=== PATIENT | female | born 1995 | race Caucasian/White ===

== ENCOUNTER 2016-06-25 08:28 | Emergency (ER) | payer OTHER ==
--- NOTE | 2016-06-25 09:17 | ED ---
Fall HPI - General Chief Complaint: Fall Stated Complaint: Fall Time Seen by Provider: 06/25/16 08:45 Source: patient, RN notes reviewed Mode of arrival: ambulatory - History of Present Illness Initial Comments: Patient is a 20-year-old female presents to the emergency room for evaluation of fall injury. Patient states that she was about to walk down the steps and slipped and fell landing on her mid back. Patient states that the wind was knocked out of her when she landed. Patient states she is not sure if she hit the back of her head when she fell. Patient states she then blacked out and woke up on the bottom of the steps. Patient's mother is present with patient. Patient's mother states that she heard a loud "bang" on the steps. Patient's mother states that she saw patient lying on the steps and she went to sit up and then appeared like she was going to pass out and then fell forward rolling down 7 steps. Patient's mother states that it took patient about a minute to regain consciousness. Patient states she's having a headache. Patient also states she's having neck pain. Patient states pain is worse when she moves her neck. Patient denies numbness or tingling in her fingers and toes. Patient's mother states that she gave patient aspirin immediately after the incident. Patient states that she's having pain over her nose where she has an abrasion. Patient states that she has a bruise over her forehead and 2 small abrasions on her right hand. Patient states she's having slight posterior left ankle pain as well. Patient states she still having pain in her mid thoracic spine where it hit the steps during the first fall. Patient denies urinary or fecal incontinence. Patient denies anesthesia. Patient states she is still able to walk. Patient denies nausea or vomiting. Patient denies current dizziness or changes in vision. Patient denies wearing years. - Related Data Home Medications Medication Instructions Recorded Confirmed Ciprofloxacin HCl [Cipro] 500 mg PO Q12HR 06/25/16 06/25/16 Allergies Allergy/AdvReac Type Severity Reaction Status Date / Time No Known Allergies Allergy Verified 06/25/16 08:53 Review of Systems ROS Statement: Those systems with pertinent positive or pertinent negative responses have been documented in the HPI. ROS Other: All systems not noted in ROS Statement are negative. Past Medical History Past Medical History: No Reported History History of Any Multi-Drug Resistant Organisms: None Reported Past Surgical History: No Surgical Hx Reported Past Psychological History: No Psychological Hx Reported Smoking Status: Never smoker Past Alcohol Use History: Occasional Past Drug Use History: None Reported General Exam - General Exam Comments Initial Comments: Sitting in exam room, no acute distress. Limitations: no limitations General appearance: alert, in no apparent distress Head exam: Present: normocephalic, normal inspection, other (Small hematoma and abrasion over the right side of forehead) Eye exam: Present: normal appearance, PERRL, EOMI Pupils: Present: normal accommodation ENT exam: Present: normal oropharynx, mucous membranes moist, TM's normal bilaterally, normal external ear exam, other (Abrasion over nasal bridge in pain on palpating over nasal bridge) Expanded Mouth exam: Present: normal external inspection Teeth exam: Present: normal inspection Throat exam: normal inspection Neck exam: Present: normal inspection, tenderness (Tenderness on palpating over her cervical spine) Respiratory exam: Present: normal lung sounds bilaterally. Absent: respiratory distress Cardiovascular Exam: Present: regular rate, normal rhythm, normal heart sounds Right Hand Wrist exam: Present: full ROM, abrasion (Superficial abrasion over right MCP joint and PIP joint.). Absent: tenderness Neuro motor exam: Present: wrist extension intact, thumb opposition intact, thumb IP flexion intact, thumb adduction intact, fingers 2-5 abduction intact Vascular: Present: normal capillary refill (Capillary refill less than 2 seconds ), radial pulse (2+), ulnar pulse (2+) Left Ankle exam: Present: normal inspection, full ROM, tenderness (Tenderness on palpating over posterior portion of lateral malleolus). Absent: swelling Foot/Toe exam: Present: normal inspection, full ROM. Absent: tenderness Neurovascular tendon exam: Present: no vascular compromise. Absent: pulse deficit (2+ dorsal pedal and posterior tibial pulses), abnormal cap refill ( Capillary refill less than 2 seconds) Gait: observed and normal Back exam: Present: normal inspection Neurological exam: Present: alert, oriented X3, CN II-XII intact, normal gait Psychiatric exam: Present: normal affect, normal mood Skin exam: Present: warm, dry, normal color. Absent: rash Course Vital Signs 06/25/16 08:29 Temperature 98.0 F Pulse Rate 75 Respiratory 16 Rate Blood Pressure 127/82 O2 Sat by Pulse 100 Oximetry Medical Decision Making - Medical Decision Making Patient is a 20-year-old female presents to the emergency room for evaluation after falling down steps. CT of brain/C-spine and facial CT shows no acute findings. X-rays show no acute findings. Advised patient to continue taking Tylenol and Motrin for pain and to follow-up with her primary care provider. Patient states she understands everything that was discussed with her. Return parameters discussed. Case discussed with Dr. Beck. - Radiology Data Radiology results: report reviewed, image reviewed Disposition Clinical Impression: Fall, Left ankle sprain, Neck strain, Contusion of lower back, Abrasion Disposition: HOME SELF-CARE Condition: Good Instructions: Abrasion (ED), Hematoma (ED), Head Injury (ED), Ankle Sprain (ED) Additional Instructions: Take Tylenol or Motrin as needed for discomfort. Please follow-up with primary care provider in 24-48 hours for reevaluation. If any new symptom arises or symptoms worsen, return to ER as soon as possible. Referrals: Rox Tariq MD [Primary Care Provider] - 1-2 days Time of Disposition: 10:40
--- NOTE | 2016-06-25 09:48 | XR ---
EXAMINATION TYPE: XR ankle complete LT DATE OF EXAM: 06/25/2016 9:41 AM COMPARISON: NONE HISTORY: Pain and swelling FINDINGS: Three views of the ankle demonstrate the ankle mortise to be intact and symmetric. The joint spaces are preserved. The osseous structures are intact. IMPRESSION: 1. No definite acute fracture or dislocation, if symptoms persist follow-up study in 7 to 10 days wou ld be suggested.
--- NOTE | 2016-06-25 09:50 | XR ---
EXAM TYPE: LUMBAR SPINE X RAY SERIES COMPARISON: NONE HISTORY: Pain TECHNIQUE: 4 views are submitted. FINDINGS: Alignment is anatomic. The pedicles are intact. The transverse processes are intact. There is no s pondylolysis or spondylolisthesis. Spina bifida occulta S1. IMPRESSION: 1. No acute process.
--- NOTE | 2016-06-25 10:05 | CT ---
EXAMINATION TYPE: CT brain cspine wo con, CT facial bones wo con DATE OF EXAM: 06/25/2016 9:40 AM COMPARISON: NONE HISTORY: Fall down 2 stairs, syncopal episode, then fell down rest of flight of stairs (accession [id number]), Fall down stairs, syncopal episode, then fell down rest of flight of stairs causing headache, neck pain, and facial pain (accession [id number]) CT DLP: 1530 (accession [id number]), 823 (accession [id number]) mGycm. Automated Exposure Control for Dos e Reduction was Utilized. TECHNIQUE: CT scan of the head, facial bones, and cervical spine are all performed without contrast. FINDINGS: There is no acute intracranial hemorrhage, mass effect, or midline shift identified. The ventricles and sulci are within normal limits in size. The calvarium is intact. There is tiny acute scalp hematoma right frontal region seen best on facial axial image 76. CT scan of facial bones shows nasal bridge and bones to appear intact. The zygomatic arches are intac t bilaterally. The orbital floors and thompson are intact. The globes are intact bilaterally. The pteryg oid plates are intact. The mandible is intact. Temporomandibular joints are maintained. There is mini mal mucosal thickening inferiorly in bilateral maxillary sinuses. Nondeformed frontal sinuses are not ed otherwise paranasal sinuses are grossly clear. Cervical spine is visualized in its entirety from C1 through upper thoracic levels and demonstrates s traightened alignment without evidence of acute fracture or dislocation. Prevertebral soft tissue ap pears within normal limits. The C1-C2 articulation is within normal limits on the coronal images. Ve rtebral body heights and disc space heights are maintained. No large posterior disc herniations are s een on sagittal images. Review of axial images shows no large disc herniations or neural foraminal narrowing at any cervical level. Thyroid gland is felt within normal limits. Lung apices are clear. IMPRESSION: 1. There is no acute fracture or dislocation evident in the cervical spine. 2. No acute intracranial hemorrhage or midline shift is seen. Tiny anterior right frontal scalp acute hematoma noted. 3. No acute facial bone fracture or dislocation is seen.
[2016-06-25 11:03] VITALS: BP 109/62; PULSE 72; RESP 18; TEMP 98.2
== END 2016-06-25 11:03 | disposition home or self-care (01) ==
LOC: EC 08:28
DX: S93.402A Sprain of unspecified ligament of left ankle, initial encounter (principal); S16.1XXA Strain of muscle, fascia and tendon at neck level, initial encounter; S30.0XXA Contusion of lower back and pelvis, initial encounter; S00.83XA Contusion of other part of head, initial encounter; S60.511A Abrasion of right hand, initial encounter; S00.31XA Abrasion of nose, initial encounter; W10.9XXA Fall (on) (from) unspecified stairs and steps, initial encounter; Y92.009 Unspecified place in unspecified non-institutional (private) residence as the place of occurrence of the external cause
CPT/HCPCS: 70450; 70486; 72110; 72125; 99284

== ENCOUNTER 2019-09-21 06:00 | Inpatient (IN) | payer BC, OTHER ==
[2019-09-21] MEDS ORDERED: LIDOCAINE 0.5% (PF) 5 MG/ML (50 ML SDV) SQ PRN (06:36)
[2019-09-21] MEDS ORDERED: METHYLERGONOVINE 0.2 MG/ML 1 ML AMP IM PRN (06:36)
[2019-09-21] MEDS ORDERED: OXYTOCIN 10 UNIT/ML 1 ML VIAL IM PRN (06:36)
[2019-09-21] MEDS ORDERED: CARBOPROST TROMETHAMINE 250 MCG/ML 1 ML AMP IM PRN (06:36)
[2019-09-21] MEDS ORDERED: TERBUTALINE 1 MG/ML VIAL SQ PRN (06:36)
[2019-09-21] MEDS: LACTATED RINGERS 1,000 ML IV SCH ×3 (06:44→16:14)
[2019-09-21 06:46] LABS: Basophils % (A) 0 %; Eosinophils % (A) 1 %; HCT 34.2 % (34.0-46.0); HGB 11.2 gm/dL (11.4-16.0); Lymphocytes # (A) 2.5 k/uL (1.0-4.8); Lymphocytes % (A) 32 %; MCH 29.5 pg (25.0-35.0); MCHC 32.9 g/dL (31.0-37.0); MCV 89.5 fL (80.0-100.0); Monocytes # (A) 0.4 k/uL (0-1.0); Monocytes % (A) 5 %; Neutrophils # (A) 4.8 k/uL (1.3-7.7); Neutrophils % (A) 61 %; Platelet Count 142 k/uL (150-450); RBC 3.82 m/uL (3.80-5.40)
[2019-09-21] MEDS: OXYTOCIN 30 UNITS/500 ML NS 30 UNIT in SALINE 1 500ML.BAG IV SCH (06:50)
--- NOTE | 2019-09-21 07:48 | P.HPOB ---
History of Present Illness H&P Date: 09/21/19 Chief Complaint: Here for induction of labor This is a 24-year-old white female 1 para 0 EDC 09/23/2019 39-5/7 weeks' gestation. Patient presents for induction with favorable cervix. Fetus active throughout the . She is having irregular mild uterine contractions spontaneously. She denies vaginal bleeding or fluid leakage. Past medical history is essentially unremarkable. Past surgical history is significant only for extraction of wisdom teeth. Current medications vitamins. ALLERGIES none known. Family history is unremarkable. Social history patient is single, boyfriend is involved. She denies alcohol, tobacco, or any drug use. history blood type is O+, rubella status immune. VDRL testing, urine culture, hepatitis B surface antigen, HIV testing, gonorrhea and chlamydia cultures, group B strep cultures all negative. One-hour Glucola 98. On exam this is a pleasant white female who is 5 foot 6 inches, 148 pounds, bl ood pressure 137/91 on admission. The general physical exam is within normal limits. The chest is clear in all agust[place]. Cervix is 3 cm dilated, 80% effaced, -2 station, vertex presentation, soft and anterior. Artificial amniorrhexis reveals clear fluid. heart rate is in the 140s with frequent accelerations consistent with reactive NST. Impression: 39-5/7 weeks intrauterine , here for induction of labor. All signs reassuring. Plan: Close maternal and surveillance. Oxytocin per hospital protocol. Analgesic options reviewed. Anticipate normal spontaneous vaginal delivery. Review of Systems Constitutional: Reports as per HPI Past Medical History Past Medical History: No Reported History History of Any Multi-Drug Resistant Organisms: None Reported Past Surgical History: No Surgical Hx Reported Past Psychological History: No Psychological Hx Reported Smoking Status: Never smoker Past Alcohol Use History: Occasional Past Drug Use History: None Reported - Past Family History Father Additional Family Medical History / Comment(s): Pt states no one in family has any issues. Medications and Allergies Allergies Allergy/AdvReac Type Severity Reaction Status Date / Time No Known Allergies Allergy Verified 06/25/16 08:53 Exam Vital Signs Temp Pulse Resp BP 09/21/19 06:24 97.3 F L 97 18 137/91 Intake and Output 09/20/19 09/21/19 09/21/19 22:59 06:59 14:59 Other: Weight 67.261 kg See dictation under HPI please Results Result Diagrams: 09/21/19 06:36 Abnormal Lab Results - Last 24 Hours (Table) 09/21/19 Range/Units 06:36 Hgb 11.2 L (11.4-16.0) gm/dL Plt Count 142 L (150-450) k/uL Assessment and Plan Assessment: 39-5/7 weeks intrauterine , here for induction of labor. All signs reassuring. Plan: Oxytocin per hospital protocol. Close maternal and surveillance. Anticipating normal spontaneous vaginal delivery. Time with Patient: Less than 30
[2019-09-21] MEDS ORDERED: fentaNYL (PF) 50 MCG/ML 5 ML AMP ONE (11:39)
[2019-09-21] MEDS ORDERED: SODIUM CHLORIDE 0.9% 100 ML BAG ONE (11:39)
[2019-09-21] MEDS ORDERED: ROPIVACAINE 5MG/ML 20ML VIAL ONE (11:39)
[2019-09-21] MEDS ORDERED: ACETAMINOPHEN TAB 325 MG TAB PO PRN (20:14)
[2019-09-21] MEDS ORDERED: diphenhydrAMINE 25 MG CAP PO PRN (20:14)
[2019-09-21] MEDS ORDERED: BENZOCAINE/MENTHOL SPRAY 1 GM/SPRAY AEROSOL TOPICAL PRN (20:14)
[2019-09-21] MEDS ORDERED: WITCH HAZEL 1 EACH MED..PAD TOPICAL PRN (20:14)
[2019-09-21] MEDS ORDERED: ZOLPIDEM 5 MG TAB PO PRN (20:14)
[2019-09-21] MEDS ORDERED: LANOLIN CREAM 5 GM TUBE TOPICAL PRN (20:14)
[2019-09-21] MEDS ORDERED: SIMETHICONE 80 MG CHEWABLE PO PRN (20:14)
[2019-09-21] MEDS ORDERED: diphenhydrAMINE 50 MG CAP PO PRN (20:14)
[2019-09-21] MEDS ORDERED: HYDROCORTISONE 2.5% RECTAL CREAM 30 GM TUBE RECTAL PRN (20:14)
[2019-09-21] MEDS ORDERED: diphenhydrAMINE 50 MG/ML 1 ML VIAL IVP PRN ×2 (20:14)
--- NOTE | 2019-09-21 20:14 | P.PROBDLV ---
Vaginal Delivery Note - . Vaginal Delivery Note: This is a 24-year-old white female 1 para 0 EDC 09/23/2019 at 39-5/7 weeks' gestation. Patient presented for induction with favorable cervix. Group B strep cultures negative. Blood type O positive. Rubella status immune. Please see dictated history and physical for details. Oxytocin was started and titrated per hospital protocol. Artificial amniorrhexis revealed clear fluid. Epidural was placed per the patient's request. She progressed well through the first stage of labor was judged to be completely dilated at 1910 hrs. She began the second stage of labor at that time. With excellent maternal expulsive efforts ultimately the perineal body was prepped and draped in usual sterile fashion. 's head delivered in the occiput anterior position at 1953 hours. There was a nuchal cord 2 that was reduced. The right or anterior shoulder was gently delivered from underneath the pubic symphysis at which time the oropharynx, nasopharynx, and external nares were bulb suctioned on the perineal body. Patient was officially delivered of a liveborn female at 1953 hours. Umbilical cord was doubly clamped and ligated. was handed to waiting nurses for evaluation. weighed 7 lbs. 4 oz. or 06/13/2004 grams. Placenta delivered spontaneously, it was inspected and noted to be intact with trivascular cord at 1955 hours. The uterus is then massaged. It is firm and in the midline, and small. Bleeding was somewhat brisk, Methergine was given IM 1 with immediate response. Careful inspection of the cervix, vagina, perineum, periurethral, and perirectal areas revealed no lacerations and no defects. Total estimated blood loss 400 mL's. All sponge needle and enhancement counts are correct at the end of the procedure. Patient and her family are allowed to begin the bonding experience in the LDR.
[2019-09-21] MEDS ORDERED: OXYTOCIN 20 UNITS/1000 ML NS 1,000 ML IV SCH (20:15)
[2019-09-21] MEDS: IBUPROFEN 600 MG TAB PO PRN (21:41)
[2019-09-22 06:00] LABS: Basophils % (A) 0 %; Eosinophils % (A) 0 %; HCT 25.7 % (34.0-46.0); Lymphocytes # (A) 1.5 k/uL (1.0-4.8); Lymphocytes % (A) 11 %; MCHC 33.8 g/dL (31.0-37.0); MCV 91.5 fL (80.0-100.0); Mean Platelet Volume 11.5; Monocytes # (A) 0.7 k/uL (0-1.0); Monocytes % (A) 5 %; Neutrophils # (A) 11.6 k/uL (1.3-7.7); Neutrophils % (A) 83 %; Platelet Count 125 k/uL (150-450); RDW 13.1 % (11.5-15.5); WBC 13.9 k/uL (3.8-10.6)
[2019-09-22 06:18] LABS: HGB 8.7 gm/dL (11.4-16.0)
--- NOTE | 2019-09-22 07:35 | P.DS ---
Providers Date of admission: 09/21/19 06:08 Expected date of discharge: 09/22/19 Attending physician: Kait Ledbetter Primary care physician: Stated None Hospital Course: This is a 24-year-old white female 1 para 0 EDC 09/23/2019 39-5/7 weeks' gestation. Patient presented for induction with favorable cervix. unremarkable, rubella status immune, blood type O positive, group B strep cultures negative. Please see dictated H&P for details. Oxytocin was started and titrated per hospital protocol. Epidural was placed per patient's request. She progressed well through the first stage of labor and became completely dilated at 1910 hours. She began the second stage of labor at that time. heart tones were reassuring throughout the entire first and second stages of labor. Patient went on to deliver vaginally a liveborn female infant with scores of 5, 8 and 9 at 1, 5 and 10 minutes respectively. There was a nuchal cord 2 that was reduced. No perineal lacerations were encountered. Estimated blood loss 400 mL's. Please see dictated delivery note for details. 's weight was 7 lbs. 4 oz. or 06/13/2004 grams. This morning the patient and her baby are both doing very well. The patient is voiding, ambulating, passing flatus without difficulty. Vital signs are stable and she is afebrile. Fundus is firm and in the midline, symmetric and 18 week size. Extremities are negative for edema. Breast-feeding is going well. Patient is judged to be in very good condition for discharge home. She will follow-up with me in the office in 6 weeks. I have reminded her no intercourse, tampons or douching. She will use [id number] Advil or Aleve, or Motrin as needed for pain. I've asked her to call me with any fevers shakes or chills, foul smelling or copious lochia, with the passage of large blood clots, with any pain not alleviated by [id number] products, or indeed with any difficulties or concerns. A prescription for a double electric breast pump has been provided. Assessment: Doing well day #1 Patient Condition at Discharge: Good Plan - Discharge Summary Discharge Rx Participant: No Follow up Appointment(s)/Referral(s): Kait Ledbetter MD [STAFF PHYSICIAN] - 6 Weeks Discharge Disposition: HOME SELF-CARE
[2019-09-22] MEDS ORDERED: SENNOSIDES-DOCUSATE SODIUM 1 EACH TAB PO SCH (08:00)
[2019-09-22] MEDS: IBUPROFEN 600 MG TAB PO PRN ×2 (08:31→17:23)
[2019-09-22 08:56] VITALS: TEMP 98.3
[2019-09-22] MEDS: LACTATED RINGERS 1,000 ML IV SCH (13:23)
[2019-09-22] MEDS: OXYTOCIN 30 UNITS/500 ML NS 30 UNIT in SALINE 1 500ML.BAG IV SCH (13:24)
[2019-09-22 16:39] VITALS: BP 111/65; PULSE 97; RESP 16
== END 2019-09-22 20:20 | disposition home or self-care (01) | DRG 807 ==
LOC: 4FBP 06:08
PROVIDERS: ADMIT Obstetrics & Gynecology; ATTEND Obstetrics & Gynecology
PROC: 10E0XZZ Delivery of Products of Conception, External Approach (ICD-10-PCS; principal; 2019-09-21)
PROC: 10907ZC Drainage of Amniotic Fluid, Therapeutic from Products of Conception, Via Natural or Artificial Opening (ICD-10-PCS; 2019-09-21)
PROC: 3E033VJ Introduction of Other Hormone into Peripheral Vein, Percutaneous Approach (ICD-10-PCS; 2019-09-21)
PROC: 3E0R3BZ Introduction of Anesthetic Agent into Spinal Canal, Percutaneous Approach (ICD-10-PCS; 2019-09-21)
DX: O69.81X0 Labor and delivery complicated by cord around neck, without compression, not applicable or unspecified (principal); Z37.0 Single live birth; Z87.19 Personal history of other diseases of the digestive system; Z3A.39 39 weeks gestation of pregnancy; Z98.890 Other specified postprocedural states
CPT/HCPCS: 85025; 86850; 86900; 86901

== ENCOUNTER 2020-11-04 13:55 | Emergency (ER) | payer BC, OTHER ==
[2020-11-04 13:59] VITALS: BP 123/86; PULSE 116; RESP 16; TEMP 98.3
[2020-11-04] MEDS ORDERED: PROPARACAINE 0.5% OPHTH DROPS 15 ML BTL BOTH EYES STA (14:09)
[2020-11-04] MEDS ORDERED: FLUORESCEIN STRIPS 1 MG STRIP BOTH EYES ONE (14:09)
--- NOTE | 2020-11-04 15:12 | ED ---
Eye Problem HPI - General Chief complaint: Eye Problems Stated complaint: Eye irritation Time Seen by Provider: 11/04/20 14:05 Source: patient, RN notes reviewed Mode of arrival: ambulatory Limitations: no limitations - History of Present Illness Initial comments: Patient is a 25-year-old female that presents to the emergency room complaining of bilateral eye irritation. She notes that she wore contacts for the first time in a long time last night while going out. She notes that she woke up this morning with severe irritation of her eyes were was difficult all numb. She denied any other symptoms or complaints. She did note that her vision was low bit fussy. She denied any pain on extraocular eye movements any foreign-body sensation. - Related Data Previous Rx's Medication Instructions Recorded Erythromycin Ophth Oint [Romycin 1 applic BOTH EYES QID #30 gm 11/04/20 Ophth Oint] Allergies Allergy/AdvReac Type Severity Reaction Status Date / Time No Known Allergies Allergy Verified 11/04/20 13:56 Review of Systems ROS Statement: Those systems with pertinent positive or pertinent negative responses have been documented in the HPI. ROS Other: All systems not noted in ROS Statement are negative. Past Medical History Past Medical History: No Reported History History of Any Multi-Drug Resistant Organisms: None Reported Past Surgical History: No Surgical Hx Reported Past Psychological History: No Psychological Hx Reported Smoking Status: Never smoker Past Alcohol Use History: Occasional Past Drug Use History: None Reported - Past Family History Father Additional Family Medical History / Comment(s): Pt states no one in family has any issues. General Exam Limitations: no limitations General appearance: alert, in no apparent distress Head exam: Present: atraumatic, normocephalic, normal inspection Eye exam: Present: PERRL, EOMI, other (Plan. Exam showed corneal abrasions over the pupil in bilateral eyes.). Absent: normal appearance, scleral icterus, conjunctival injection, periorbital swelling Expanded Eyelids: Normal Inspection: Bilateral Pupils: Regular, Round: Bilateral, Reactive: Bilateral Sclera/Conjunctival: Injection: Bilateral Anterior chamber: Normal Inspection: Bilateral Neck exam: Present: normal inspection Respiratory exam: Present: normal lung sounds bilaterally. Absent: respiratory distress, wheezes, rales, rhonchi, stridor Cardiovascular Exam: Present: regular rate, normal rhythm, normal heart sounds. Absent: systolic murmur, diastolic murmur, rubs, gallop, clicks Extremities exam: Present: normal inspection, full ROM, normal capillary refill. Absent: tenderness, pedal edema, joint swelling, calf tenderness Neurological exam: Present: alert, oriented X3 Psychiatric exam: Present: normal affect, normal mood Skin exam: Present: warm, dry, intact, normal color. Absent: rash Course Vital Signs 11/04/20 13:56 Temperature 98.3 F Pulse Rate 116 H Respiratory 16 Rate Blood Pressure 123/86 O2 Sat by Pulse 100 Oximetry Medical Decision Making - Medical Decision Making 5-year-old female complaining of bilateral eye irritation. Proparacaine drops, fluoroscene strips ordered. Patient states that her eyes felt much better after a couple drops of proparacaine in each eye. Wood lamp exam demonstrated bilateral corneal abrasions. Visual acuity test ordered. Patient was informed that since the abrasions are over the visual field that it can cause some blurriness. Case discussed with Dr. Garvey him a patient can discharge home with follow-up to hunting and fishing guide. Disposition Clinical Impression: Bilateral corneal abrasions Disposition: HOME SELF-CARE Condition: Stable Instructions (If sedation given, give patient instructions): Abrasion (ED) Additional Instructions: Please return to the Emergency Department if symptoms worsen or any other concerns. Follow-up with primary care and hunting and fishing guide the next several days. Use proparacaine drops several times a day for irritation. Erythromycin ointment sent to pharmacy use as directed. Prescriptions: Erythromycin Ophth Oint [Romycin Ophth Oint] 1 applic BOTH EYES QID #30 gm Is patient prescribed a controlled substance at d/c from ED?: No Referrals: Rox Tariq MD [Primary Care Provider] - 1-2 days Time of Disposition: 15:12
== END 2020-11-04 15:19 | disposition home or self-care (01) ==
LOC: EC 13:55
DX: S05.02XA Injury of conjunctiva and corneal abrasion without foreign body, left eye, initial encounter (principal); S05.01XA Injury of conjunctiva and corneal abrasion without foreign body, right eye, initial encounter; Y77.11 Contact lens associated with adverse incidents
CPT/HCPCS: 99283

== ENCOUNTER → 2021-01-08 | Outpatient (CLI) | payer OTHER | END | disposition home or self-care (01) | LOC: LABWHC1 11:43 | PROVIDERS: ATTEND Emergency Medicine | DX: Z20.822 Contact with and (suspected) exposure to COVID-19 (principal) | CPT/HCPCS: 87635 ==

== ENCOUNTER → 2021-01-09 | Outpatient (CLI) | payer OTHER | END | disposition home or self-care (01) | LOC: LABWHC1 14:59 | PROVIDERS: ATTEND Emergency Medicine | DX: Z20.822 Contact with and (suspected) exposure to COVID-19 (principal) | CPT/HCPCS: 87635 ==

== ENCOUNTER → 2021-03-14 | Outpatient (CLI) | payer OTHER | END | disposition home or self-care (01) | LOC: LABWHC1 11:25 | PROVIDERS: ATTEND Emergency Medicine | DX: U07.1 COVID-19 (principal) | CPT/HCPCS: 87635 ==

== ENCOUNTER → 2021-10-09 | Outpatient (CLI) | payer OTHER ==
--- NOTE | 2021-10-09 12:23 | US ---
EXAMINATION TYPE: US abdomen complete DATE OF EXAM: 10/09/2021 COMPARISON: NONE CLINICAL HISTORY: ABD PAIN. EXAM MEASUREMENTS: Liver Length: 13.5 cm Gallbladder Wall: 0.2 cm CBD: 0.2 cm Spleen: 10.7 cm Right Kidney: 10.0 x 3.3 x 4.3 cm Left Kidney: 10.5 x 5.4 x 4.2 cm Pancreas: wnl Liver: wnl Gallbladder: wnl Evidence for sonographic Perez's sign: no CBD: wnl Spleen: wnl Right Kidney: wnl Left Kidney: Superior pole obscured by bowel gas Upper IVC: wnl Abd Aorta: wnl IMPRESSION: 1. Normal abdomen ultrasound
--- NOTE | 2021-10-09 12:24 | US ---
EXAMINATION TYPE: US pelvic complete DATE OF EXAM: 10/09/2021 COMPARISON: NONE CLINICAL HISTORY: PELVIC PAIN. TECHNIQUE: Transvaginal (TV Date of LMP: 09-28-21 EXAM MEASUREMENTS: Uterus: 8.9 x 3.6 x 4.6 cm Endometrial Stripe: 0.3 cm Right Ovary: 3.6 x 1.9 x 2.6 cm Left Ovary: 3.1 x 1.5 x 1.6 cm 1. Uterus: Anteverted wnl 2. Endometrium: wnl 3. Right Ovary: cyst vs dominant follicle measuring 2.6 x 1.7 x 2.3cm 4. Left Ovary: wnl 5. Bilateral Adnexa: wnl 6. Posterior cul-de-sac: mild free fluid IMPRESSION: 1. Right ovarian cyst.
== END | disposition home or self-care (01) ==
LOC: RADUSWWP 08:51
PROVIDERS: ATTEND Internal Medicine
DX: N83.201 Unspecified ovarian cyst, right side (principal)
CPT/HCPCS: 76700; 76856